=== PATIENT | female | born 1995 | race African-American/Black ===

== ENCOUNTER 2024-09-29 01:20 | Emergency (ER) | payer SELFPAY ==
[~2024-09-29] VITALS: Ht 157.5 cm; Wt 72.7 kg
[2024-09-29 01:54] VITALS: TEMP 97.705256
[2024-09-29] MEDS ORDERED: HYDR-4808 PO (02:20)
[2024-09-29 02:30] VITALS: BP 112/75; PULSE 70; RESP 16; O2SAT 99
== END 2024-09-29 03:00 | disposition home or self-care (01) ==
LOC: EMS 01:20
DX: F41.9 Anxiety disorder, unspecified (principal)
CPT/HCPCS: 93005; 99283